=== PATIENT | female | born 1975 | race Caucasian/White ===

== ENCOUNTER 2018-02-24 11:21 | Emergency (ER) | payer OTHER, SELFPAY ==
[2018-02-24 11:22] VITALS: BP 161/113; PULSE 102; RESP 16; TEMP 36.2; O2SAT 100; BMI 25.3
[2018-02-24] MEDS: 0.9% Normal Saline 1,000 ML 1000 ML IV (12:02)
[2018-02-24 12:03] LABS: Absolute Lymphocyte Count 1.51 X10^3/ul (0.83-4.51); Absolute Neutrophil Count 3.3 X10^3/uL (2.0-7.7); Basophil# 0.06 X10^3/uL; Basophil% 1.1 % (0-1); Eosinophil# 0.16 X10^3/uL; Hematocrit 34.7 % (37-47); Hemoglobin 10.9 g/dl (12.0-15.0); Lymphocyte # 1.51 X10^3/ul (4.0); Lymphocyte % 27.9 % (19-41); Mean Corp Hgb Conc 31.4 g/gl (32-36); Mean Corpuscular Hgb 25.8 pg (27.0-32.0); Mean Platelet Vol. 10.1 fl (6.2-12.0); Monocyte# 0.37 X10^3/uL; Monocyte% 6.8 % (0-10); Neutrophil # 3.31 X10^3/uL (2.7-7.7); POSITIVE COUNT NO; POSITIVE DIFFERENTIAL NO; POSITIVE MORPHOLOGY NO; Platelet Count 416 K/mm3 (150-450); RBC Distribution Width CV 14.4 % (11.6-14.6); RBC Distribution Width SD 41.8 fl (35.1-43.9); Red Blood Count 4.23 M/mm3 (4.2-5.4); White Blood Count 5.4 K/mm3 (4.4-11.0)
[2018-02-24] MEDS: Dicyclomine 10 MG Capsule 20 MG PO (12:08)
[2018-02-24 12:19] LABS: AST(SGOT) 16 U/L (15-37); Alanine Aminotransfer ALT/SGPT 18 U/L (13-56); Alkaline Phosphatase 46 U/L (45-117); Anion Gap 9 (5-15); BUN 12 mg/dL (7-18); Bilirubin, Direct 0.08 mg/dL (0.00-0.30); Calcium,Total 8.8 mg/dL (8.5-10.1); Chloride 109 mmol/L (98-107); EST Glomerular Filtration Rate 64 mL/min (>60); Est Glom Filt Rate - Afr Amer 78 mL/min (>60); Estimated Creatinine Clearance 60.01 ml/min; Glucose 133 mg/dL (74-106); Lipase 80 U/L (73-393); Potassium 3.5 mmol/L (3.5-5.1); Sodium Level 142 mmol/L (136-145)
[2018-02-24 12:24] LABS: Pregnancy, Serum, hCG Quali. NEGATIVE Negative (0-9 Nonpreg)
--- NOTE | 2018-02-24 12:29 | ED.VISSUMM ---
- ER Visit Summary Date of Service: 02/24/18 Chief Complaint: Abdominal pain History of Present Illness: The patient is a 43 F who woke late Sunday night/early Sunday morning with nausea and vomited 3 or 4 times. She has no further vomiting, but has ongoing intermittent epigastric cramping. She denies fever or chills. She denies diarrhea. Patient states she has a history of reflux and this does not feel similar. had recently been ill with flu and with a dental infection. Physical Examination: Vital signs significant for blood pressure 161/113. Patient is sitting upright in bed. She is nontoxic appearing. Head neck examination is normal. Heart is regular rate and rhythm. Lung sounds are clear. Abdomen is soft with mild epigastric tenderness. No guarding or rebound. Active bowel sounds are noted throughout. Test Results: CBC was normal white count. Hemoglobin is 10.9. Chemistry studies unremarkable. LFTs and lipase normal. test negative. Emergency Department Course and Treatment: Patient was given IV fluids along with Bentyl. Patient be discharged with prescription for the same. If she is worsened or not improving over the next couple days she is to either return or follow-up with her primary care physician. She will continue bland diet and advance as tolerated. Treatment Plan: [] Disposition: Discharge Impression: Vomiting, improved Epigastric pain This note was generated with [employer] dictation software. It may contain incorrect words, spelling, and punctuation that were not noted in review of the chart prior to signing ED Disposition - Plan for ED Patient: Chief Complaint: Abd Pain Referrals: Alon Stroud MD [Primary Care Provider] -
--- NOTE | 2018-02-24 12:35 | ED.DEP ---
ED Disposition - Plan for ED Patient: Disposition: Home or Assisted Living Chief Complaint: Abd Pain Instructions: ED Epigastric Pain [facility] Prescriptions: Dicyclomine HCl [Bentyl] 20 mg PO TIDAC #20 capsule Referrals: Alon Stroud MD [Primary Care Provider] - 3-5 Days if not improving
[2018-02-24 12:37] VITALS: PULSE 74; RESP 14
== END 2018-02-24 12:46 | disposition home or self-care (01) ==
PROVIDERS: Emergency Provider Emergency Medicine; Family Provider Family Medicine; PCP Family Medicine
DX: R11.2 Nausea with vomiting, unspecified (principal); R10.13 Epigastric pain; K21.9 Gastro-esophageal reflux disease without esophagitis
CPT/HCPCS: 80048; 80076; 83690; 84703; 85025; 96360; 99284; J7030

== ENCOUNTER → 2018-06-10 | Outpatient (CLI) | payer OTHER, SELFPAY ==
--- NOTE | 2018-06-10 07:23 | BI_ITS ---
MAMMOGRAPHY - BILATERAL SCREENING REASON FOR EXAM: Female, 43 years old. Routine annual screening examination. PERTINENT HISTORY: Sister with breast cancer. Aunt with breast cancer. TECHNIQUE: Digital bilateral breast diana (3D mammographic acquisition) in the CC and MLO projections. 2-D mediolateral oblique (MLO) and craniocaudad (CC) views of both breasts were obtained. CAD: Full Field Digital Mammography with Computer Added Detection was performed. COMPARISON: Comparison is made with prior examination dated June 07, 2017. FINDINGS: Breast Composition: The breasts are heterogeneously dense, which may obscure small masses. There are no dominant masses or suspicious calcifications. No other significant abnormalities are identified. There has been no significant change since the prior study. BI/SCREENING MAMM (CAD), BILAT IMPRESSION: Stable bilateral screening mammogram. Yearly follow-up mammogram recommended. (A) ASSESSMENT CATEGORY: BIRADS Category 1: Negative. A letter regarding these results will be sent to the patient by the facility within 30 days. Approximately 10% of breast cancers are not detected by mammography. A normal mammogram should not delay biopsy of a clinically suspicious abnormality. [id number] Electronically Signed: Ascencion Dewitt, at 12:34 EDT , Service support ,
== END | disposition home or self-care (01) ==
LOC: OPBI 07:21
PROVIDERS: Family Provider Family Medicine; PCP Family Medicine; Referring Provider Nurse Practitioner Family; Visit Provider Nurse Practitioner Family
DX: Z12.31 Encounter for screening mammogram for malignant neoplasm of breast (principal)
CPT/HCPCS: 77063; 77067

== ENCOUNTER → 2019-07-04 08:07 | Outpatient (CLI) | payer OTHER, SELFPAY ==
--- NOTE | 2019-07-04 08:12 | BI_ITS ---
MAMMOGRAPHY - BILATERAL SCREENING REASON FOR EXAM: Female, 44 years old. Routine annual screening examination. PERTINENT HISTORY: Sister with breast cancer. Aunt with breast cancer. TECHNIQUE: Digital bilateral breast dedrick (3D mammographic acquisition) in the CC and MLO projections. 2-D mediolateral oblique (MLO) and craniocaudad (CC) views of both breasts were obtained. CAD: Full Field Digital Mammography with Computer Added Detection was performed. COMPARISON: Comparison is made with prior examination dated June 10, 2018. FINDINGS: Breast Composition: The breasts are heterogeneously dense, which may obscure small masses. There are no dominant masses or suspicious calcifications. No other significant abnormalities are identified. There has been no significant change since the prior study. BI/SCREEN MAMM (CAD) W/DEDRICK BILAT IMPRESSION: Stable bilateral screening mammogram. Yearly follow-up mammogram recommended. (A) ASSESSMENT CATEGORY: BIRADS Category 1: Negative. A letter regarding these results will be sent to the patient by the facility within 30 days. Approximately 10% of breast cancers are not detected by mammography. A normal mammogram should not delay biopsy of a clinically suspicious abnormality. [id number] Electronically Signed: Ascencion Dewitt, at 11:09 EDT , Service support ,
== END ==
PROVIDERS: PCP Family Medicine; Referring Provider Nurse Practitioner Family; Visit Provider Nurse Practitioner Family
DX: Z12.31 Encounter for screening mammogram for malignant neoplasm of breast (principal)
CPT/HCPCS: 77063; 77067

== ENCOUNTER → 2020-09-10 12:02 | Outpatient (CLI) | payer OTHER, SELFPAY ==
--- NOTE | 2020-09-10 12:29 | US_ITS ---
STUDY: ULTRASOUND GUIDED RIGHT BREAST BIOPSY RIGHT REASON FOR EXAM: Female, 45 years old. RT BREAST MASS RADIATION DOSAGE (If Supplied By Facility): CTDIvol = ( ) mGy, DLP = ( ) mGycm. Individualized dose optimization techniques were used for this CT.? TECHNIQUE: Sonographic guidance for mammotome right breast biopsy performed by Dr. Gooden. US guidance by Laurie Herrera, COMPARISON: Previous studies including mammogram from 07/22/2020, and ultrasound from 08/17/2020. FINDINGS: Appropriate site for mammotome biopsy was determined using sonographic guidance. The area was prepped and draped in a sterile manner, and 2% XYLOCAINE was used as local anesthetic. . This location was 11 o''clock, 5 cm from the nipple. Successful biopsy samples were obtained under sonographic guidance, and a biopsy clip was placed after the procedure was done and confirmed by ultrasound. Patient tolerated the procedure well with no immediate complications and was discharged home in stable condition US/US Breast Biopsy 1st Lesion IMPRESSION: Successful sonographically guided right breast biopsy Electronically Signed: Faizan Brown MD at 13:56 EDT , Service support ,
--- NOTE | 2020-09-10 12:30 | BRBX_PTH ---
PATIENT: RAMIREZ CARRASCO LOC: [facility] U#:[id number] AGE/SX: 49/F ROOM: RE09/10/[address]: Dr. Dejuan Gooden MD : 1975 BED: DIS: SPEC #: [id number] RECD: 09/10/20 13:24 STATUS: WILBERTO RECheli #: [id number] JAYCEE: 09/10/20 12:[address]: Dejuan Gooden DEPT: SURGICAL PATHOLOGY RECD BY: Isatu Olivares ENTERED: 09/13/20 08:31 SP TYPE: BREAST BX ROSSANA DR: MD Valery Liu NP-Omid Tissues: Right breast, NOS Procedures: Surgery Specimen Level IV HEADER OPERATION: Right breast biopsy PRE-OP DIAGNOSIS: Right breast mass TISSUE SUBMITTED: Right breast 11 o?clock, 5 cm from nipple ISCHEMIC TIME: 1 minute FIXATION TIME: 79 hours MICROSCOPIC DIAGNOSIS Right breast mass, 11 o?clock, 5 cm from nipple, core biopsy: Fibroadenoma. Negative for atypia or malignancy. MYRTLE:radha 09/14/2020 COMMENT Correlation with clinical, radiologic findings and appropriate follow up are necessary. Case has been reviewed in consultation with Dr. Brock who concurs with the above diagnosis. IDC:AM MICROSCOPIC DESCRIPTION Slides are reviewed. GROSS DESCRIPTION Received in fixative is one container labeled with the patient name and designated right breast. The specimen consists of multiple elongated fragments of theodore-yellow fibroadipose tissue that in aggregate measure 2 x 1.5 x 0.1 cm. The entire specimen is submitted in one cassette. / MYRTLE:radha 09/13/20 TC:1 CPT: 57162
--- NOTE | 2020-09-10 14:03 | PCM.HP.BLA ---
History and Physical Date of Admission: 09/10/20 HISTORY AND PHYSICAL - BREAST COMPLAINT ? Ella Rico 1975 ? ? REFERRING PHYSICIAN: MD Marcell ? CHIEF COMPLAINT: Abnormal mammogram (primary encounter diagnosis) ? HPI: The patient is a 45 year old female with a complaint of an abnormal mammogram. The patient had a mammogram with ultrasound on 08/17/20 which demonstrated Birads 4 rifht 11:00 +5: ? ? The patient denies a history of breast masses. She does perform a self breast exam routinely. She notes no skin changes. She denies nipple discharge. She notes no axillary masses. She notes no family history of breast problems. She notes no significant breast trauma or breast difficulties in the past. ? The patient has had 3 pregnancies. Her first menstrual period was at age 13. ? The patient is being seen by me today at the request of Dr. Faith for my opinion and advice regarding Abnormal mammogram (primary encounter diagnosis). ? PAST MEDICAL HISTORY PAST MEDICAL HISTORY Diagnosis Date ? NONE ? ? ? PAST SURGICAL HISTORY PAST SURGICAL HISTORY Procedure Laterality Date ? REPAIR OF NASAL SEPTUM ? ? ? Septoplasty,polyps removed ? ? ? CURRENT MEDICATIONS No current outpatient medications on file. ? No current facility-administered medications for this visit. ? ? ALLERGIES: Dust and Mold ? PERSONAL HISTORY: SOCIAL HISTORY Social History ? Tobacco Use ? Smoking status: Never Smoker ? Smokeless tobacco: Never Used Vaping Use ? Vaping Use: Never used Substance Use Topics ? Alcohol use: Yes ? ? Comment: seldom ? Drug use: No ? FAMILY HISTORY: FAMILY HISTORY FAMILY HISTORY Problem Relation Age of Onset ? Hypertension Father ? ? Breast Cancer Sister 44 ? Cancer Maternal Grandfather ? ? LUNG ? Stroke Paternal Grandfather ? ? Diabetes Other ? ? MCOUSIN ? ? REVIEW OF SYMPTOMS: The review of systems data was entered by the nurse and reviewed by me ? Nursing Notes: Donna Lyles RN 08/19/2020 8:16 AM Signed REVIEW OF SYSTEMS: General: The patient denies fatigue, denies weight loss, denies weight gain, denies feeling hot, and denies feelings of cold. Eyes: The patient denies glaucoma, denies eye injury/surgery, wears glasses or contacts. Ear/Nose/Throat: The patient notes allergies, denies hayfever, denies ear infections, and denies bloody noses. Cardiovascular: The patient denies chest pain, denies heart disease, denies high blood pressure,denies cardiac stent, denies prior heart attack, denies irregular heart beat, denies high cholesterol, denies poor circulation, denies heart failure, other cardiac issues, denies claudication, denies cold feet, denies peripheral arterial stent. Respiratory: The patient denies tuberculosis, denies pneumonia, denies frequent cough, denies pulmonary embolism, denies shortness of breath, and denies coughing up blood. Gastrointestinal: The patient denies difficulty swallowing, notes acid reflux, denies ulcers, denies vomiting, denies jaundice/hepatitis, denies gallbladder problems, denies black or tarry stools, denies hemorrhoids, denies bleeding from rectum, denies diverticulitis, denies constipation, denies diarrhea, denies loss of stool control, and denies hernias. Kidney/Bladder: The patient denies kidney stones, denies urine infections, and denies bloody urine. Skin: The patient denies a history of skin cancer, denies bleeding/changing moles, and denies a history of skin rash. Neurologic: The patient denies a history of epilepsy/convulsions, denies headaches, denies head/spinal injuries, and denies stroke/TIA. Psychiatric: The patient denies psychiatric medications, denies depression, and denies voices, denies substance abuse. Endocrine: The patient denies thyroid disorders, denies diabetes, and denies hormonal problems. Hematologic: The patient notes a history of bruising, denies bleeding, and notes anemia, denies blood clots. Infections: The patient denies a history of measles and mumps, denies rheumatic fever, and denies sexually transmitted diseases. Musculoskeletal: The patient denies back pain/injury, denies back problems, denies sciatica, denies knee/foot trouble, denies arthritis, or denies gout. ? ? When was patient's last Mammogram screening? 07/22/2020 ? Last Colonoscopy: None ? Donna Lyles RN ? PHYSICAL EXAMINATION: ? General: The patient is 45 year old female, well nourished, well hydrated in no acute distress. The patient is oriented to time, place, and person. ? VITALS: Blood pressure 118/76, pulse (!) 121, temperature 36.1 ?C (97 ?F), height 158.8 cm (5' 2.5), weight 67.6 kg (149 lb), last menstrual period 06/22/2020, SpO2 100 %. Body mass index is 26.82 kg/m?. ? HEENT: Normal cephalic, ataumatic, pupils are equally round, sclera are anicteric, mucous membranes are moist, oropharynx is clear. Neck has no masses, asymmetry or lymphadenopathy. Thyroid is unremarkable. ? Respiratory: Clear to auscultation and percussion. Normal respiratory excursion and pattern. ? Cardiac: Examination is regular rate and rhythm. ? Abdominal exam: Soft, nontender, with no palpable masses. No hepatosplenomegaly. No palpable hernias. ? Rectal exam: exam deferred Extremities: no clubbing, cyanosis or edema. No adenopathy. ? Breast: Visual inspection reveals no retractions, nipple inversion, or skin changes. Palpation of the right breast reveals no dominant or suspicious masses, but multiple benign-feeling nodules. Palpation of the left breast reveals no dominant or suspicious masses, but multiple benign-feeling nodules. Axillary exam demonstrates no suspicious masses in either the left or right axilla. There is no nipple discharge expressed from either the left or right breast. ? LABORATORY VALUES: As Noted ? RADIOLOGIC STUDIES: As Noted ? Assessment IMPRESSION: Abnormal mammogram (primary encounter diagnosis) ? PLAN: I plan to perform a ultrasound guided core biopsy of the right breast. The planned surgical procedure was discussed extensively with the patient. The risks, benefits, anticipated outcomes and possible complications were mentioned. My staff has also explained the procedure in understandable terms and the patient was given the option to take printed material concerning the planned procedure. The patient had the opportunity to ask questions concerning the planned procedure. The patient freely consents to the planned procedure. ? ? Diagnoses: (R92.8) Abnormal mammogram (primary encounter diagnosis) ? My findings have been communicated to No primary care provider on file. via shared medical record. This note will be forwarded to No primary care provider on file.. ? Return to Clinic: The patient is instructed to follow-up with me after the testing has been completed. ? Dejuan Gooden III, MD I have re-examined the patient. There are no clinical changes since date of exam.
--- NOTE | 2020-09-10 14:04 | PCM.OPRPT ---
Problems Associated Problem List Diagnoses (1) Abnormal mammogram of right breast: Report of Operation Date of Procedure: 09/10/20 Pre-Operative Diagnosis: Abnormal mammogram right breast Post-Operative Diagnosis: Same Surgery/Procedure Performed:: Ultrasound-guided handheld mammotome breast biopsy right breast Surgeon: Dejuan Gooden Type of Anesthesia: Local Description of Procedure: Patient was supine in the ultrasound room. Right breast was ultrasound at the 11 o'clock position lesion was identified. The skin was prepped with chlorhexidine. 1% lidocaine plain was injected. I injected local posterior to the lesion. A skin steven was made. Under ultrasound guidance I directed the hand-held mammotome needle posterior to the lesion. Under ultrasound guidance numerous biopsies were obtained. Under ultrasound guidance a small titanium clip was placed. Sterile dressings were applied. The patient tolerated the procedure well. Admit VTE Documentation VTE Present on Admission: No VTE Mechan Device Prophylaxis: None VTE Pharm Prophylaxis ordered?: No Reason prophylaxis not ordered:: Treatment Not Indicated
== END ==
PROVIDERS: PCP Family Medicine; Referring Provider Surgery; Visit Provider Surgery
DX: R92.8 Other abnormal and inconclusive findings on diagnostic imaging of breast (principal); Z80.3 Family history of malignant neoplasm of breast
CPT/HCPCS: 19083; 88305

== ENCOUNTER 2023-01-08 10:19 | Emergency (ER) | payer OTHER, SELFPAY ==
[2023-01-08 10:20] VITALS: BP 214/149; PULSE 116; RESP 14; TEMP 36.7; O2SAT 100; BMI 27.5
[2023-01-08 10:45] VITALS: BP 220/114
--- NOTE | 2023-01-08 10:57 | EX.ED.DYSGE1 ---
HPI History of Present Illness Chief Complaint: Hypertension Narrative Narrative: 47-year-old female presenting with asymptomatic hypertension. She states her blood pressures been elevated for about a month. She states she tested herself with her 's home blood pressure cuff and noted that its been in the 180s systolic over 120s to 130s diastolic. Denies headaches, visual complaints, dizziness, nausea, vomiting, chest pain, palpitations, shortness of breath. She feels otherwise well. Patient was at her oncology visit today and was sent to the ER out of concern for her elevated blood pressure. PFSH PFSH Medical History no medical history Home Medications dicyclomine 10 mg capsule 20 mg (2 x 10 mg) PO TIDAC ##20 02/24/18 [Rx Last Taken Unknown] amlodipine 10 mg tablet 10 mg PO DAILY #30 tabs 01/08/23 [Rx Last Taken Unknown] Allergy/AdvReac Type Severity Reaction Status Date / Time No Known Allergies Allergy Verified 01/08/23 10:21 Social History Smoking Status: Never smoker ROS ROS ED Constitutional Constitutional ED: Denies chills, fever(s) or sweats Eyes Eyes: Denies blurry vision or change in vision ENT ENT ED: Denies ear pain or sore throat Cardiovascular Cardiovascular: Denies chest pain, palpitations or racing heartbeat Respiratory/Chest Respiratory/Chest: Denies cough, dyspnea or sputum Gastrointestinal Gastrointestinal: Denies abdominal pain, constipation, diarrhea, nausea or vomiting Genitourinary Genitourinary ED: Denies dysuria, hematuria or urinary frequency Musculoskeletal Musculoskeletal: Denies arthralgias, myalgias or neck pain Integumentary Denies abscess, Abrasions or rash Neurologic Neurologic: Denies headache(s), paresthesias or weakness Psychiatric Psychiatric: Denies anxiety, depression, suicidal ideation or suicidal thoughts Endocrine Endocrinology: Denies polydipsia or polyuria EXAM Physical Exam Const Vital Signs: 01/08/23 10:20 01/08/23 10:45 01/08/23 10:45 Temperature 98.1 F Temperature Source Temporal Pulse Rate 116 H Respiratory Rate 14 Respiratory Pattern Normal Blood Pressure 214/149 H 220/114 H Blood Pressure Mean 170 149 Pulse Ox 100 Oxygen Delivery Method Room Air Positive well nourished General Appearance ED: NAD; Negative for pallor HEENT Reports moist mucous membranes Eyes PERRL and EOMs intact bilaterally Neck no lymphadenopathy Chest Wall inspection of chest normal Resp normal respiratory effort and clear to auscultation bilaterally Auscultation: Negative for rales, rhonchi or wheezes Cardio regular rate and regular rhythm Extremity General Extremety ED: Negative for edema General Extremity: Negative for edema Neuro CN's II-XII intact bilaterally Sensorium / Orientation: alert Psych mental status grossly normal Skin no rashes or lesions noted and no wounds General Skin Exam: Negative for jaundice or pallor MDM MDM MDM Narrative Medical decision making narrative: 47-year-old female presenting with asymptomatic hypertension. Physical exam is unremarkable. Heart regular rate and rhythm without murmur. Clear to auscultation bilaterally. No red flag signs or symptoms based on history. Given that she has asymptomatic hypertension I discussed the case with Dr. Villarreal who is on-call for cardiology. He recommended starting 10 of amlodipine. He recommended having him follow-up with Dr. Toussaint. Reach out to her to arrange follow-up. Patient given dose of amlodipine 10 mg in the ED. patient was discussed with Dr. Candelario. She will see her in follow-up. She recommended keeping a blood pressure diary. Patient will be discharged home. Impression: 1. Hypertension Discharge Plan Triage Chief Complaint: Hypertension ED Provider: Cody Lopez Dx/Rx/DC Orders Instructions: ED Hypertension New Begin Treatment Prescriptions: New amlodipine 10 mg tablet 10 mg PO DAILY Qty: 30 0RF No Action dicyclomine 10 MG capsule 20 mg PO TIDAC Qty: 20 0RF Primary Care Provider: Alon Stroud Referrals: Karina Toussaint MD [Med Staff - Active Staff] - 3-5 Days Alon Stroud MD [Primary Care Provider] - Activity Restrictions/Additional Instructions: Take your amlodipine as prescribed daily. Keep a blood pressure diary. I spoke with Dr. Candelario who will see you as a follow-up. Please call make an appointment. Bring your blood pressure diary with you to your appointment. Disposition Disposition: Home, Self Care
[2023-01-08] MEDS: amLODIPine 10 MG Tablet PO (11:45)
[2023-01-08 12:06] VITALS: BP 195/127; PULSE 74; RESP 14; O2SAT 99
== END 2023-01-08 12:06 | disposition home or self-care (01) ==
PROVIDERS: Emergency Provider Student in an Organized Health Care Education/Training Program; PCP Family Medicine; Visit Provider Student in an Organized Health Care Education/Training Program
DX: I10 Essential (primary) hypertension (principal); Z79.899 Other long term (current) drug therapy
CPT/HCPCS: 99282

== ENCOUNTER → 2023-01-16 | Outpatient (CLI) | payer OTHER, SELFPAY ==
[2023-01-16 12:09] LABS: Absolute Neutrophil Count 1.9 X10^3/uL (2.0-7.7); Basophil# 0.08 X10^3/uL; Basophil% 1.9 % (0-1); Eosinophil# 0.29 X10^3/uL; Eosinophils% 6.8 % (0-5); Hematocrit 40.3 % (37-47); Hemoglobin 12.7 g/dL (12.0-15.0); Lymphocyte % 37.3 % (19-41); Mean Corp Hgb Conc 31.5 g/dL (32-36); Mean Corpuscular Hgb 27.7 pg (27.0-32.0); Mean Corpuscular Volume 87.8 fL (81-99); Mean Platelet Vol. 10.4 fl (6.2-12.0); Monocyte# 0.43 X10^3/uL; NRBC Flagged by Analyzer 0 % (0-5); Neutrophil # 1.88 X10^3/uL (2.7-7.7); Neutrophil % 43.8 % (47-70); Platelet Count 408 K/mm3 (150-450); RBC Distribution Width CV 15.4 % (11.6-14.6); RBC Distribution Width SD 49.7 fl (35.1-43.9); Red Blood Count 4.59 M/mm3 (4.2-5.4); White Blood Count 4.3 K/mm3 (4.4-11.0)
[2023-01-16 13:00] LABS: AST(SGOT) 16 U/L (15-37); Alanine Aminotransfer ALT/SGPT 18 U/L (13-56); Albumin, Serum 3.9 g/dL (3.2-5.0); Alkaline Phosphatase 47 U/L (45-117); Anion Gap 3 (5-15); BUN 14 mg/dL (7-18); BUN/Creat Ratio 14.4 RATIO (10-20); Calcium,Total 9.2 mg/dL (8.5-10.1); Chloride 109 mmol/L (98-107); Cholesterol 161 mg/dL (200); Creatinine, Serum 0.97 mg/dL (0.55-1.02); EST Glomerular Filtration Rate 65 mL/min (>60); Est Glom Filt Rate - Afr Amer 79 mL/min (>60); Globulin 3.9 g/dL (2.2-4.2); Glucose 96 mg/dL (74-106); High Density Lipoprotein 58 mg/dL; Potassium 3.7 mmol/L (3.5-5.1); Protein, Total 7.8 g/dL (6.4-8.2); Sodium Level 140 mmol/L (136-145); Thyroid Stim Hormone (TSH) 1.45 uIU/mL (0.358-3.74); Triglycerides 94 mg/dL; Very Low Density Lipoprotein 19 mg/dL (5-40)
== END | disposition home or self-care (01) ==
LOC: BIMLAB 09:47
PROVIDERS: PCP Internal Medicine; Referring Provider Internal Medicine; Visit Provider Internal Medicine
DX: I10 Essential (primary) hypertension (principal)
CPT/HCPCS: 36415; 80053; 80061; 84443; 85025

== ENCOUNTER 2023-10-22 08:15 | Day surgery (SDC) | payer OTHER, SELFPAY ==
[2023-10-22] VITALS (7 sets, daily range): BP systolic 85–142; BP diastolic 54–103; PULSE 64–84; RESP 16; TEMP 36.1–36.6; O2SAT 96–100; BMI 28.0
--- NOTE | 2023-10-22 08:39 | PCM.PRE.AN2 ---
ASA Classification* ASA Classification ASA Classification: 2 Assessment & Plan Anesthesia* Anesthesia Assessment Anesthesia Assessment: Discussed sedation and/or anesthesia options, risks, benefits, and alternatives with patient/parents/legal guardian/POA. Questions invited. The patient/parents/legal guardian/POA seems to understand and agrees to proceed with anesthesia plan. Reviewed the physical assessment, medical history, allergy history and patient home medications list prior to surgery/procedure/anesthetic and documented any changes. Performed airway and anesthesia risk assessments. Anesthesia Type Anesthesia Type: MAC Anesthesia Focused Assessment* Temperature: 97 F Pulse Rate: 84 Blood Pressure: 142/103 Respiratory Rate: 16 Pulse Ox: 100 Airway Assessment Mouth opens: >3 cm Mallampati Score: II Focused Labs Anesthesia Preop lab: CBC WBC 4.3 K/mm3 (4.4-11.0) L 01/16/23 09:48 RBC 4.59 M/mm3 (4.2-5.4) 01/16/23 09:48 Hgb 12.7 g/dL (12.0-15.0) 01/16/23 09:48 Hct 40.3 % (37-47) 01/16/23 09:48 Plt Count 408 K/mm3 (150-450) 01/16/23 09:48 CHEMISTRY Potassium 3.7 mmol/L (3.5-5.1) 01/16/23 09:48 Sodium 140 mmol/L (136-145) 01/16/23 09:48 BUN 14 mg/dL (7-18) 01/16/23 09:48 Creatinine 0.97 mg/dL (0.55-1.02) 01/16/23 09:48 Glucose 96 mg/dL (74-106) 01/16/23 09:48 TSH 1.45 uIU/mL (0.358-3.74) 01/16/23 09:48 COAG Pre-Assessment Diagnosis/Proposed Procedure Planned Operative Procedure(s): COLONOSCOPY Anesthesia History 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 When Was Last Pacemaker Check QUESTION #4 FULL TEXT: You/Your Family Experience fever (hyperthermia) with Anesthesia Last Oral Intake Last Oral intake: Last Oral Intake NPO since 06:30 10/22/23 08:31 Meds taken in AM with sips of Yes 10/22/23 08:31 water? 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 Female Yes 10/17/23 15:01 HX of Motion Sickness No 10/17/23 15:01 HX of N/V After Surgery No 10/17/23 15:01 Non-Smoker Yes 10/17/23 15:01 Duration of Surgery greater No 10/17/23 15:01 than 60 minutes Number of Risk Factors 2 10/17/23 15:01 PONV Score Moderate Risk 10/17/23 15:01 Height & Weight Height & Weight: Anesthesia: Height & Weight Height 5 ft 2 in 10/22/23 08:31 Weight: 69.4 kg 10/22/23 08:31 Body Mass Index (BMI) 28.0 10/22/23 08:31 Respiratory Assessment Respiratory Assessment - 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 Has anyone observed you stop No 10/17/23 15:01 breathing during sleep? STOP Results Negative 10/17/23 15:01 QUESTION #5 FULL TEXT : Do you snore loudly (louder than talking or can be heard through closed doors)? 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 Specify any problems Hx of Preganancy in last 3 No 10/17/23 15:01 Months Nurse Filling Out Transfusion VLEHMAN 10/17/23 15:01 & Questions: Date: 10/17/23 10/17/23 15:01 Time: 15:08 10/17/23 15:01 Patient unable to answer at this time (ie. 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 Hx Now No 10/17/23 15:01 Gestational Age (in weeks): EDC: Hx Hx Para Hx Section SAB No 10/17/23 15:01 Active Medications Active Medications: Current Medications Generic Name Dose Route Start Last Admin Trade Name Freq PRN Reason Stop Dose Admin Lactated Ringer's 1,000 mls @ 15 mls/hr 10/22/23 08:45 IV .Q48H ZABRINA PFSH Medical History Wears contact lenses Wears glasses Alcohol use Anemia Restless legs Heartburn Non-smoker Essential hypertension Abnormal mammogram of right breast Home Medications ?Medication ?Instructions ?Recorded ?Last Taken ?Type amlodipine 10 mg tablet 10 mg PO DAILY #90 tabs 07/23/23 10/22/23 Rx Allergy/AdvReac Type Severity Reaction Status Date / Time No Known Allergies Allergy Verified 10/22/23 08:29 Family History Father Myocardial infarction 79 Hypertension Mother Cancer lung. 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
[2023-10-22] MEDS: Lactated Ringers 1,000 ML 15 ML IV (08:48)
--- NOTE | 2023-10-22 09:00 | COLBX_PTH ---
PATIENT: RAMIREZ CARRASCO LOC: EN U#:[id number] AGE/SX: 48/F ROOM: RE10/22/[address]: Dr. Rupesh Cantu DO : 1975 BED: DIS: 10/22/2023 SPEC #: [id number] RECD: 10/22/23 12:28 STATUS: WILBERTO FOSTER #: [id number] JAYCEE: 10/22/23 09:[address]: Rupesh Cantu DEPT: SURGICAL PATHOLOGY RECD BY: Isatu Olivares ENTERED: 10/22/23 13:18 SP TYPE: COLON BX OTHR DR: Dr. Karina Toussaint MD Tissues: SPLENIC FLEXURE Procedures: Surgery Specimen Level IV HEADER OPERATION: Colonoscopy with biopsy PRE-OP DIAGNOSIS: Screening TISSUE SUBMITTED: Splenic flexure polyp biopsy MICROSCOPIC DIAGNOSIS Splenic flexure polyp, biopsy: Hyperplastic polyp. MYRTLE/ 10/23/2023 MICROSCOPIC DESCRIPTION Slides are reviewed. GROSS DESCRIPTION Received in fixative is one container labeled with the patient's name and designated Splenic flexure polyp biopsy. The specimen consists of one irregular fragment of light theodore soft tissue that measures 0.5 x 0.5 x 0.1 cm. The specimen is totally submitted in one cassette. 10/22/2023 TC:1 CPT:54576
--- NOTE | 2023-10-22 09:17 | HP.PCM_ITS ---
[facility] - General General Date of Admission: 10/22/23 Date of Service: 10/22/23 Chief Complaint: Screening colonoscopy HPI Narrative RAMIREZ CARRASCO, is a 48 F who presents today for screening colonoscopy. She has not had a colonoscopy in the past. She has no abdominal pain, cramping, nausea vomiting or diarrhea. Overall she is in very good health. [facility] Medical History Wears contact lenses Wears glasses Alcohol use Anemia Restless legs Heartburn Non-smoker Essential hypertension Abnormal mammogram of right breast Home Medications ?Medication ?Instructions ?Recorded ?Last Taken ?Type amlodipine 10 mg tablet 10 mg PO DAILY #90 tabs 07/23/23 10/22/23 Rx Allergy/AdvReac Type Severity Reaction Status Date / Time No Known Allergies Allergy Verified 10/22/23 08:29 Family History Father Myocardial infarction 79 Hypertension Mother Cancer lung. 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 Smoking Status: Never smoker Electronic Cigarette Use: not used alcohol intake: former substance use type: does not use do you feel safe at home: Yes ROS Review of Systems ROS Unobtainable: other Constitutional Constitutional: Denies fatigue, fever(s), poor appetite, weight gain or weight loss ENT HEENT: Denies mouth lesions Cardiovascular Cardiovascular: Denies abdominal bloating, abdominal edema or abdominal pain Respiratory/Chest Respiratory/Chest: Denies change in mental status, change in phlegm color, chest congestion or chest tightness Gastrointestinal Gastrointestinal: Denies belching, bloating, change in bowel habits, change in stool character, chewing difficulty, coffee ground emesis, constipation, cramping, diarrhea, dyspepsia, dysphagia, early satiety, excessive flatus, fecal incontinence, heartburn, hematemesis, hematochezia, hemorrhoids, loose stools, melena, nausea, odynophagia, rectal bleeding, tenesmus, vomiting or weight changes Genitourinary Genitourinary: Denies abdominal discomfort, burning urination or itching Musculoskeletal Musculoskeletal: Reports as per HPI; Denies muscle weakness or myalgias Integumentary Integumentary: Denies jaundice Neurologic Neurologic: Denies lack of coordination or weakness Psychiatric Psychiatric: Denies confusion, depression, memory loss, mood swings, paranoia or suicidal ideation Endocrine Endocrinology: Denies systems reviewed and no addt'l complaints, except as docum ented Hematologic/Lymphatic Hematologic/Lymphatic: Denies anemia, easy bleeding, easy bruising or lymphadenopathy Allergic/Immunologic Allergic/Immunologic: Denies systems reviewed and no addt'l complaints, except as documented Vital Signs Vital Signs Vital Signs: 10/22/23 08:31 10/22/23 08:31 10/22/23 08:39 Temperature 97 F L 97 F L Temperature Source Temporal Pulse Rate 84 84 Respiratory Rate 16 16 Respiratory Pattern Normal Blood Pressure 142/103 H 142/103 H Blood Pressure Mean 116 Blood Pressure Source Monitor Blood Pressure Position Semi-Fowlers Blood Pressure Location Right Arm Pulse Ox 100 100 Oxygen Delivery Method Room Air Weight Weight: 153 lb Body Mass Index (BMI) 28.0 Physical Exam Const alert General Appearance: cooperative Orientation / Consciousness: oriented to person HEENT hearing grossly normal bilaterally Head and Scalp: normal to inspection Face and Sinus: face symmetric Nose: external nose normal Mouth: oral and palatal mucosa normal Eyes conjunctivae normal General Eye: normal appearance of both eyes Neck full ROM General: normal visual inspection Lymph Lymphatic: no lymphadenopathy noted Chest inspection of chest normal and palpation of chest normal Chest: symmetrical chest wall rise Resp normal respiratory effort Effort and Inspection: able to speak in complete sentences Cardio regular rate GI non-distended Percussion: normal to percussion Rectal Exam: deferred Neuro Speech: speech normal Gait (Neuro): normal gait Assessment & Plan Assessment/Plan (1) Encounter for screening for malignant neoplasm of colon: PLAN: She was explained alternatives, risk, benefits including not withstanding bleeding, infection, sepsis, perforation, need for emergent urgent . She will have an ASA of 3.
--- NOTE | 2023-10-22 09:49 | OP.CCLET_ITS ---
10/22/2023 Karina Toussaint Md Re : Colonoscopy procedure for Ella Rico Dear Breana This procedure was performed on Sunday, October 22, 2023. My impressions and recommendations are as follows: Impressions : - One 3 mm polyp at the splenic flexure, removed with a cold biopsy forceps. Resected and retrieved. - The examination was otherwise normal on direct and retroflexion views. Recommendations : - Discharge patient to home. - Resume previous diet. - Continue present medications. - Await pathology results. - Repeat colonoscopy in 5 years for surveillance. My findings are described in the full procedure note, which is enclosed. If I can be of further assistance, please feel free to contact me at . Sincerely, Rupesh Cantu, 10/22/2023 9:49:10 AM This report has been signed electronically.
--- NOTE | 2023-10-22 09:49 | OP.COLON_ITS ---
Patient Name: Ella Rico Procedure Date: 10/22/2023 9:20 AM Date of : 1975 Age: 48 Procedure: Colonoscopy Indications: Screening for colorectal malignant neoplasm Providers: Rupesh Cantu DO Medicines: Monitored Anesthesia Care Patient Profile: This is a 48 year old female. Refer to note in patient chart for documentation of history and physical. Last Colonoscopy: none. The patient's first colonoscopy is today. Complications: No immediate complications. Procedure: Pre-Anesthesia Assessment: - Prior to the procedure, a History and Physical was performed, and patient medications and allergies were reviewed. The patient is competent. The risks and benefits of the procedure and the sedation options and risks were discussed with the patient. All questions were answered and informed consent was obtained. Patient identification and proposed procedure were verified by the physician in the pre-procedure area. Mental Status Examination: alert and oriented. Airway Examination: normal oropharyngeal airway and neck mobility. Respiratory Examination: clear to auscultation. CV Examination: normal. Prophylactic Antibiotics: The patient does not require prophylactic antibiotics. Prior Anticoagulants: The patient has taken no anticoagulant or antiplatelet agents except for NSAID medication. ASA Grade Assessment: II - A patient with mild systemic disease. After reviewing the risks and benefits, the patient was deemed in satisfactory condition to undergo the procedure. The anesthesia plan was to use monitored anesthesia care (MAC). Immediately prior to administration of medications, the patient was re-assessed for adequacy to receive sedatives. The heart rate, respiratory rate, oxygen saturations, blood pressure, adequacy of pulmonary ventilation, and response to care were monitored throughout the procedure. The physical status of the patient was re-assessed after the procedure. After I obtained informed consent, the scope was passed under direct vision. Throughout the procedure, the patient's blood pressure, pulse, and oxygen saturations were monitored continuously. The Colonoscope was introduced through the anus and advanced to the cecum, identified by appendiceal orifice and ileocecal valve. The colonoscopy was performed without difficulty. The patient tolerated the procedure well. The quality of the bowel preparation was adequate. The ileocecal valve, appendiceal orifice, and rectum were photographed. Scope In: 9:34:04 AM Scope Withdrawal Time 0 hours 7 minutes 52 seconds Scope Out: 9:46:19 AM Total Procedure Duration Time 0 hours 12 minutes 15 seconds Findings: The perianal and digital rectal examinations were normal. A 3 mm polyp was found in the splenic flexure. The polyp was sessile. The polyp was removed with a cold biopsy forceps. Resection and retrieval were complete. Verification of patient identification for the specimen was done. Estimated blood loss was minimal. The exam was otherwise without abnormality on direct and retroflexion views. Impression: - One 3 mm polyp at the splenic flexure, removed with a cold biopsy forceps. Resected and retrieved. - The examination was otherwise normal on direct and retroflexion views. Recommendation: - Discharge patient to home. - Resume previous diet. - Continue present medications. - Await pathology results. - Repeat colonoscopy in 5 years for surveillance. Procedure Code(s): --- Professional --- 54747, Colonoscopy, flexible; with biopsy, single or multiple CPT copyright 2021 [employer]. All rights reserved. The codes documented in this report are preliminary and upon lean manufacturing coordinator review may be revised to meet current compliance requirements. Rupesh Cantu DO 10/22/2023 9:49:10 AM This report has been signed electronically. Number of Addenda: 0 Note Initiated On: 10/22/2023 9:20 AM
--- NOTE | 2023-10-22 09:55 | PCM.POST.ANE ---
Anesthesia: Postop Eval I Current Vital Signs Temperature: 97.5 F Pulse Rate: 77 Blood Pressure: 98/68 Respiratory Rate: 16 Pulse Ox: 96 Oxygen Delivery Method: Room Air Assessment Airway patent: Yes Spontaneous unlabored respirations: Yes Mental status: Asleep nausea: No Vomiting: No Anesthesia Complication: No Fluid Hydration Crystalloid volume administer (ml): 500 Total IV fluid infused: 500 Progress Note Anesthesia document: Postop Eval 1 completed: Yes
--- NOTE | 2023-10-22 10:07 | PCM.POSTANE2 ---
Anesthesia Postop Eval I Sum Postop Eval Completion status Anesthesia document: Postop Eval 1 completed: Yes Anesthesia Postop Eval I Summary Anesthesia Postop Eval I Summary: Anesthesia Postop Eval I: Assessment Summary Airway patent Yes 10/22/23 09:55 [email or web address] Spontaneous unlabored Yes 10/22/23 09:55 [email or web address] respirations Mental status Asleep 10/22/23 09:55 [email or web address] nausea No 10/22/23 09:55 [email or web address] Vomiting No 10/22/23 09:55 [email or web address] Anesthesia Postop Eval I: Fluid Summary Crystalloid volume administer 500 10/22/23 09:55 [email or web address] (ml) Colloids volume administered ( ml) Blood Product volume administered (ml) Total IV fluid infused 500 10/22/23 09:55 [email or web address] Anesthesia Postop Eval I: Summary Notes Anesthesia Complication No 10/22/23 09:55 [email or web address] Anesthesia Complication Comment: Post-operative progress note Anesthesia: Postop Eval II Evaluation Mental status: Awake Pain Level: 0 nausea: No Vomiting: No
== END 2023-10-22 10:50 | disposition home or self-care (01) ==
LOC: EN 08:16 → AC 08:18
PROVIDERS: PCP Internal Medicine; Referring Provider Internal Medicine; Visit Provider Internal Medicine Gastroenterology
PROC: 0DJD8ZZ Inspection of Lower Intestinal Tract, Via Natural or Artificial Opening Endoscopic (ICD-10-PCS; CPT 45378; principal; 2023-10-22 08:55)
DX: Z12.11 Encounter for screening for malignant neoplasm of colon (principal); K63.5 Polyp of colon; I10 Essential (primary) hypertension; Z79.899 Other long term (current) drug therapy
CPT/HCPCS: 45380; 88305; J7120; J2405

== ENCOUNTER → 2024-01-24 | Outpatient (CLI) | payer OTHER, SELFPAY ==
[2024-01-24 12:03] LABS: Absolute Neutrophil Count 3.3 X10^3/uL (2.0-7.7); Basophil# 0.07 X10^3/uL; Basophil% 1.2 % (0-1); Eosinophil# 0.32 X10^3/uL; Eosinophils% 5.4 % (0-5); Hematocrit 41.1 % (37-47); Hemoglobin 13.2 g/dL (12.0-15.0); Lymphocyte % 28.9 % (19-41); Mean Corp Hgb Conc 32.1 g/dL (32-36); Mean Corpuscular Hgb 28.5 pg (27.0-32.0); Mean Corpuscular Volume 88.8 fL (81-99); Mean Platelet Vol. 10.5 fl (6.2-12.0); Monocyte# 0.54 X10^3/uL; Monocyte% 9.2 % (0-10); NRBC Flagged by Analyzer 0 % (0-5); Neutrophil # 3.25 X10^3/uL (2.7-7.7); Neutrophil % 55.1 % (47-70); Platelet Count 369 K/mm3 (150-450); RBC Distribution Width CV 14.7 % (11.6-14.6); RBC Distribution Width SD 48.1 fl (35.1-43.9); Red Blood Count 4.63 M/mm3 (4.2-5.4); White Blood Count 5.9 K/mm3 (4.4-11.0)
[2024-01-24 12:34] LABS: ALB/GLOB Ratio 0.9 RATIO (0.9-2.4); AST(SGOT) 14 U/L (15-37); Alanine Aminotransfer ALT/SGPT 18 U/L (13-56); Albumin, Serum 3.8 g/dL (3.2-5.0); Alkaline Phosphatase 58 U/L (45-117); Anion Gap 5 (5-15); BUN 15 mg/dL (7-18); BUN/Creat Ratio 16.3 RATIO (10-20); Calcium,Total 9.6 mg/dL (8.5-10.1); Chloride 107 mmol/L (98-107); Creatinine, Serum 0.92 mg/dL (0.55-1.02); EST Glomerular Filtration Rate 69 mL/min (>60); Est Glom Filt Rate - Afr Amer 83 mL/min (>60); Globulin 4.1 g/dL (2.2-4.2); Glucose 102 mg/dL (74-106); Potassium 4.5 mmol/L (3.5-5.1); Protein, Total 7.9 g/dL (6.4-8.2); Sodium Level 139 mmol/L (136-145)
== END | disposition home or self-care (01) ==
LOC: BIMLAB 08:37
PROVIDERS: PCP Internal Medicine; Referring Provider Internal Medicine; Visit Provider Internal Medicine
DX: I10 Essential (primary) hypertension (principal)
CPT/HCPCS: 36415; 80053; 85025

== ENCOUNTER → 2024-04-09 | Outpatient (CLI) | payer OTHER, SELFPAY ==
--- NOTE | 2024-04-09 16:06 | RAD_ITS ---
PROCEDURE: CERVICAL SPINE, FIVE VIEWS REASON FOR EXAM: Right-sided neck pain. TECHNIQUE: AP, lateral, obliques, and odontoid views. COMPARISON: None. FINDINGS: Vertebra: Vertebral bodies normal in height. Mild spondylosis anteriorly at C5. C1-C2: Atlantoaxial articulation is maintained. Alignment: No scoliosis. No spondylolisthesis. Discs: Normal in height. Foramens: Unremarkable. Facets: Unremarkable. Soft tissues: Prevertebral soft tissues are normal. RAD/Cerv Spine 4 or 5 Views IMPRESSION: 1. Minor spondylosis at C5. 2. No acute findings involving the cervical spine. Reading Location: [place] [id number]
== END | disposition home or self-care (01) ==
LOC: MTRAD 16:06
PROVIDERS: PCP Internal Medicine; Referring Provider Internal Medicine; Visit Provider Internal Medicine
DX: M54.2 Cervicalgia (principal)
CPT/HCPCS: 72050

== ENCOUNTER 2024-04-23 16:00 | Outpatient (RCR) | payer OTHER, SELFPAY ==
--- NOTE | 2024-09-17 10:28 | HP.PTEVAL_ITS ---
Patient's Visit Information Visit Information Visit Information: RAMIREZ CARRASCO is a 49 year old F referred to Physical Therapy by Dr. Karina Toussaint MD with a diagnosis of Neck pain. Date of Evaluation: 04/16/24 Physical Therapist: Miller Conley DPT Visit Plan Frequency: 2x /Week Duration: 4 Weeks Plan: 1) cervical SNAGS 2) manual PAs and UPAs with cervical rotation. 3) cervical retraction Subjective Subjective: Pt. is here today for her initial evaluation with diagnosis of neck pain. Pt. reports having neck pain for a months now. Pt. reports her main complaint is with rotation of her neck, its gets very tight and hard to move. She has increased pain when she does this as well. Pt. reports no N/T in either UE. Pt. reports mornings are stiff, but not crazy. No mech of injury noted. Pt. has not done any exercises of yet, she reports being unsure of what to do. She had xrays which were negative. No myotomal weakness noted either. Pt. is hopeful to reduce symptoms in order to complete all ADLs and sleep with minimal to no pain in her neck. Pain Neck: Pain Intensity (Out of 10): 1 Pain Intensity Range: 0 and 4 Objective Objective: POSTURE: Pt. has fairly normal cervical posture. Slight FH, but rest normal.\ PALPATION: Pt. has tenderness in B cerivcal erector spinae and B UE region. NEURO: normal throughot. ROM: B shoulder: normal. CERVICAL SPINE: fleixon min loss NE, ext mod loss increase NW, rotation R min/mod loss increase NW, rotaiton min/mod loss increase NW. MMT: Pt. has 5/5 strength throughout BUEs. Special Tests C/S Radiculapathy - Left Upper limb tension test: Negative C/S Radiculapathy - Right Upper limb tension test: Negative C/S Radiculapathy - Left Spurlings: Negative C/S Radiculapathy - Right Spurlings: Negative C/S Radiculapathy - Left Cervical distraction: Negative C/S Radiculapathy - Right Cervical distraction: Negative C/S Radiculapathy - Left Relief test: Negative Cervical Sitting: Protrusion - Mechanical Response: No effect Cervical Sitting: Protrusion - Symptoms During Testing: No effect Cervical Sitting: Protrusion - Symptoms After Testing: No effect Cervical Sitting: Retraction - Mechanical Response: No effect Cervical Sitting: Retraction - Symptoms During Testing: Increases Cervical Sitting: Retraction - Symptoms After Testing: No worse Cervical Sitting: Retraction-Extension - Mechanical Response: No effect Cerv Sitting: Retraction-Extension - Symptoms During Testing: No effect Cerv Sitting: Retraction-Extension - Symptoms After Testing: No effect Cervical Sitting: Sidebend Right - Mechanical Response: No effect Cervical Sitting: Sidebend Right - Symptoms During Testing: No effect Cervical Sitting: Sidebend Right - Symptoms After Testing: No effect Goals Goal 1:: LTG: Pt. to be I with HEP. Goal Time Frame: 2-4 Weeks Goal 2:: STG: Pt. to have full cervical ROM without increase in symptoms. Goal Time Frame: 2-4 Weeks Goal 3:: STG: pt. to sleep throughout the night without increase in symptoms. Goal 4:: LTG: Pt. to complete all recreational activities without increase in cervical spine pain. Rehabilitation Potential Physical Therapy Diagnosis: Pt. has signs and symptoms consistent with neck pain. Pt. did not have signs of radicular symptoms. Pt. has marked cervical hypomobility and pain. Pt. would benefit from PT to address her ROM loss and pain. Rehabilitation Potential: Excellent Anticipated Interventions Patient/Client Instruction: Educate patient on: Condition, Plan of Care, Risk Factors and Benefits of Fitness Program For the Purpose of:: To foster healthy habits, To improve decision making, To facilitate caregiver knowledge, To improve self management, To prevent re-injury and To improve ability to perform tasks related to life management Therapeutic Exercise to Include: Passive ROM, Active ROM and Addie Exercises For the Purpose of:: To decrease pain, To decrease swelling/inflammation, To increase ROM, To improve nutrient delivery to tissue and To increase oxygenation perfusion Manual Therapy Techniques to Include: Mobilization and Soft tissue mobilization For the Purpose of:: To decrease pain, To increase ROM, To improve nutrient delivery to tissue and To increase oxygenation perfusion Text: Thank you for the opportunity to evaluate your patient. For Medicare and Medicare HMO plans, please review the plan of care and approve it. It will need to be FAXED BACK to us at [phone] for Medicare purposes. For Medicare only, by signing this I certify the plan of care. Please let me know if there are questions or concerns regarding this plan of care. Physician Signature: Date:
--- NOTE | 2024-09-17 10:47 | HP.PT.NRP ---
Patient Information Patient Information: RAMIREZ CARRASCO was seen in my office for initial evaluation on 04/16/24. The following Plan of Care was established for this patient: POC Established Initial Frequency: 2x /Week Initial Duration: 4 Weeks Anticipated Interventions Patient/Client Instruction: Educate patient on: Condition, Plan of Care, Risk Factors and Benefits of Fitness Program For the Purpose of:: To foster healthy habits, To improve decision making, To facilitate caregiver knowledge, To improve self management, To prevent re-injury and To improve ability to perform tasks related to life management Therapeutic Exercise to Include: Passive ROM, Active ROM and Addie Exercises For the Purpose of:: To decrease pain, To decrease swelling/inflammation, To increase ROM, To improve nutrient delivery to tissue and To increase oxygenation perfusion Manual Therapy Techniques to Include: Mobilization and Soft tissue mobilization For the Purpose of:: To decrease pain, To increase ROM, To improve nutrient delivery to tissue and To increase oxygenation perfusion Last Seen Last Seen: This patient was last seen in our office 04/23/24. Pertinent comments regarding their Physical therapy will appear below: Pt. was seen in Pt for her neck pain. Pt. has not been seen in several months and will be DC from PT at this point in time. At this point I will be discontinuing this patient from physical therapy. I would be happy to see this patient again in the future if found appropriate by the physician. Thank you! MILAD PowellT
== END 2024-04-23 19:00 | disposition home or self-care (01) ==
LOC: PT 16:00
PROVIDERS: PCP Internal Medicine; Referring Provider Internal Medicine; Visit Provider Internal Medicine
DX: M54.2 Cervicalgia (principal)
CPT/HCPCS: 97140; 97161